=== PATIENT | male | born 1970 | race Caucasian/White ===

== ENCOUNTER 2024-05-31 13:10 | Outpatient (CLI) | payer BC | END 2024-05-31 13:11 | disposition home or self-care (01) | LOC: CSHWCC 13:10 | PROVIDERS: ATTEND Nurse Practitioner Family | DX: I87.333 Chronic venous hypertension (idiopathic) with ulcer and inflammation of bilateral lower extremity (principal); L97.212 Non-pressure chronic ulcer of right calf with fat layer exposed; L97.312 Non-pressure chronic ulcer of right ankle with fat layer exposed; L97.322 Non-pressure chronic ulcer of left ankle with fat layer exposed; L97.222 Non-pressure chronic ulcer of left calf with fat layer exposed; E66.01 Morbid (severe) obesity due to excess calories | CPT/HCPCS: 11042; 11045; 87070; 87077; 87186; 87205; 99204; G0463 ==

== ENCOUNTER 2024-06-14 14:23 | Outpatient (CLI) | payer BC | END 2024-06-14 14:24 | disposition home or self-care (01) | LOC: CSHWCC 14:23 | PROVIDERS: ATTEND Nurse Practitioner Family | DX: I87.333 Chronic venous hypertension (idiopathic) with ulcer and inflammation of bilateral lower extremity (principal); L97.212 Non-pressure chronic ulcer of right calf with fat layer exposed; L97.312 Non-pressure chronic ulcer of right ankle with fat layer exposed; L97.322 Non-pressure chronic ulcer of left ankle with fat layer exposed; L97.222 Non-pressure chronic ulcer of left calf with fat layer exposed; E66.01 Morbid (severe) obesity due to excess calories | CPT/HCPCS: 11042; 11045 ==

== ENCOUNTER 2024-07-12 15:22 | Outpatient (CLI) | payer BC | END 2024-07-12 15:23 | disposition home or self-care (01) | LOC: CSHWCC 15:22 | PROVIDERS: ATTEND Nurse Practitioner Family | DX: I87.333 Chronic venous hypertension (idiopathic) with ulcer and inflammation of bilateral lower extremity (principal); L97.212 Non-pressure chronic ulcer of right calf with fat layer exposed; L97.312 Non-pressure chronic ulcer of right ankle with fat layer exposed; L97.322 Non-pressure chronic ulcer of left ankle with fat layer exposed; L97.222 Non-pressure chronic ulcer of left calf with fat layer exposed; E66.01 Morbid (severe) obesity due to excess calories | CPT/HCPCS: 97597; 97598 ==